=== PATIENT | male | born 1945 | race Caucasian/White ===

== ENCOUNTER 2019-07-03 01:38 | Day surgery (SDC) | payer MEDICARE, SELFPAY ==
[2019-06-27 14:28] VITALS: BMI 26.4
[2019-07-03 08:40] VITALS: BP 144/87; PULSE 85; RESP 16; TEMP 36.4; O2SAT 99
[2019-07-03] MEDS: LACTATED RINGERS 1,000 ML 150 ML IV CONT (08:50)
[2019-07-03 08:54] LABS: Glucose Point of Care 82 (65-105)
--- NOTE | 2019-07-03 09:00 | P.HP_ITS ---
History of Present Illness History of Present Illness Consent: Risks, benefits, and alternatives have been discussed and questions answered. Patient agrees to proceed with procedure. Chief complaint: Neoplasm Screening Narrative: Brice Wylie is a 74 year old W male referred for screening colonoscopy. Patient is asymptomatic there is no family history of colon polyps or colon cancer. Patient states he had a colonoscopy greater than 10 years ago. [facility] Surgical History Surgical History (Updated 06/18/19 @ 09:53 by Aleah Thomason PA-C) S/P arthroscopy of left shoulder S/P coronary artery stent placement S/P left knee arthroscopy Family History Family History (Updated 02/25/19 @ 13:41 by DOCTOR UNKNOWN) Mother Family history of cardiovascular disease Sibling Family history of lung cancer Other Family history of arthritis Family history of malignant neoplasm Social History Social History (Updated 06/18/19 @ 09:13 by Bria Crowder) Smoking status: Never smoker Alcohol intake: never Substance use: never Substance use type: does not use Meds Home Medications and Allergies Home Medications Medication Instructions Recorded Confirmed Type simvastatin 20 mg tablet 20 mg PO DAILY #90 tablet 06/04/19 06/27/19 Rx aspirin 81 mg tablet,delayed 81 mg PO DAILY 06/18/19 06/27/19 History release hydrochlorothiazide 25 mg tablet 25 mg PO DAILY #30 tablet 06/18/19 06/27/19 Rx losartan 25 mg tablet 12.5 mg PO DAILY #30 tablet 06/18/19 06/27/19 Rx metformin 500 mg tablet 500 mg PO BID 06/18/19 06/27/19 History omega-3 fatty acids 1,000 mg 1,000 mg PO DAILY 06/18/19 06/27/19 History capsule omeprazole 40 mg capsule,delayed 40 mg PO DAILY 06/18/19 06/27/19 History release diclofenac potassium 50 mg tablet 50 mg PO BID #60 tablet 06/23/19 06/27/19 Rx Allergies Allergy/AdvReac Type Severity Reaction Status Date / Time No Known Allergies Allergy Verified 07/03/19 08:38 Vital Signs Vital Signs - 24 hr 07/03/19 08:40 Temperature 36.4 C L Pulse Rate 85 Respiratory Rate 16 Blood Pressure 144/87 H Pulse Oximetry 99 Exam Const: Orientation/consciousness: patient oriented x3 Resp: Auscultation: clear to auscultation bilaterally Cardio: Rate: regular rate Rhythm: regular rhythm Heart sounds: no murmurs GI: GI Palp: Yes Soft to palpation, No Tenderness to palpation present (GI), Yes No hepatosplenomegaly present and No Palpable mass present Auscultation: normal bowel sounds Neuro: General: patient oriented x3 and no focal motor deficits Extrem: General: no pedal edema Assessment and Plan Additional Plan Screening colonoscopy in average risk patient
--- NOTE | 2019-07-03 09:04 | WPDANESEPPF ---
Anes - Initial Pre Proc Eval Procedure: Operation Date: 07/03/19 09:30 Proposed Procedures p Screening Colonoscopy - Ant Villagomez MD Date/Time: 07/03/19 09:04 Surgeon: Ant Villagomez MD Pre Op Diagnosis: Neoplasm Screening Patient Data Age: 74 Gender: M Height: 5 ft 9 in Weight: 86.4 kg Last Vital Signs Temp 36.4 C L 07/03/19 08:40 Pulse 85 07/03/19 08:40 Resp 16 07/03/19 08:40 BP 144/87 H 07/03/19 08:40 Pulse Ox 99 07/03/19 08:40 Allergies Allergy/AdvReac Type Severity Reaction Status Date / Time No Known Allergies Allergy Verified 07/03/19 08:38 Home Medications Medication Instructions Recorded Confirmed Type simvastatin 20 mg tablet 20 mg PO DAILY #90 tablet 06/04/19 06/27/19 Rx aspirin 81 mg tablet,delayed 81 mg PO DAILY 06/18/19 06/27/19 History release hydrochlorothiazide 25 mg tablet 25 mg PO DAILY #30 tablet 06/18/19 06/27/19 Rx losartan 25 mg tablet 12.5 mg PO DAILY #30 tablet 06/18/19 06/27/19 Rx metformin 500 mg tablet 500 mg PO BID 06/18/19 06/27/19 History omega-3 fatty acids 1,000 mg 1,000 mg PO DAILY 06/18/19 06/27/19 History capsule omeprazole 40 mg capsule,delayed 40 mg PO DAILY 06/18/19 06/27/19 History release diclofenac potassium 50 mg tablet 50 mg PO BID #60 tablet 06/23/19 06/27/19 Rx Laboratory Tests 07/03/19 08:53 POC Capillary Glucose 82 mg/dl mg/dl (65-105) Patient hx anesthesia problems: none Family hx anesthesia problems: none PMFSH Surgical History Surgical History S/P arthroscopy of left shoulder S/P coronary artery stent placement S/P left knee arthroscopy Family History Family History Mother Family history of cardiovascular disease Sibling Family history of lung cancer Other Family history of arthritis Family history of malignant neoplasm Social History Social History Smoking status: Never smoker Alcohol intake: never Substance use: never Substance use type: does not use Anes - Eval Final PreProcedure Day of Procedure 07/03/19 09:04 Patient weight: overweight Heart: regular rate and rhythm Lungs: clear to auscultation Airway: Mallampati scale class 1 Neurological: alert and oriented Last oral intake: >/= 8 hours ASA classification: III Emergent: no Anesthetic plan: proceed Anesthesia type and monitoring: general GIVS and standard monitoring Informed Consent: The patient's anesthetic plan and its attendant risks and benefits were discussed with the patient/family/POA. Questions were solicited and answers provided to the satisfaction of the patient/family/POA.
[2019-07-03 10:31] VITALS: BP 109/51; PULSE 76; RESP 14; O2SAT 100
[2019-07-03 10:41] VITALS: BP 117/53; PULSE 73; RESP 14; O2SAT 100
[2019-07-03 10:50] VITALS: BP 117/66; PULSE 70; RESP 14; O2SAT 100
== END 2019-07-03 11:03 | disposition home or self-care (01) ==
PROVIDERS: PCP Family Medicine; Visit Provider Internal Medicine Gastroenterology
PROC: 0DJD8ZZ Inspection of Lower Intestinal Tract, Via Natural or Artificial Opening Endoscopic (ICD-10-PCS; CPT 45378; principal; 2019-07-03 09:30)
DX: Z12.11 Encounter for screening for malignant neoplasm of colon (principal); K64.8 Other hemorrhoids; K57.30 Diverticulosis of large intestine without perforation or abscess without bleeding; K63.89 Other specified diseases of intestine; Z95.5 Presence of coronary angioplasty implant and graft; Z79.82 Long term (current) use of aspirin; Z79.84 Long term (current) use of oral hypoglycemic drugs
CPT/HCPCS: G0121; J2704; J7120